=== PATIENT | female | born 1960 | race Caucasian/White ===

== ENCOUNTER 2018-10-18 19:28 | Emergency (ER) | payer OTHER ==
--- NOTE | 2018-10-18 19:46 | EDM.PDOC ---
ED HPI GENERAL MEDICAL PROBLEM - General Chief Complaint: Neuro Symptoms/Deficits Stated Complaint: POSS STROKE Time Seen by Provider: 10/18/18 19:29 - History of Present Illness INITIAL COMMENTS - FREE TEXT/NARRATIVE: 58-year-old female presents emergency room with right-sided weakness mild headache. Patient developed symptoms about a quarter after 7 this evening. He developed right-sided weakness pre-profound facial weakness. About the time she started to come to the hospital by private car somewhat also driving noticed that she was starting to improve. Time my initial exam she had some obvious right-sided weakness but this was getting better. Very subtle facial weakness was noted at that time. Patient had routine testing EKG CT labs done by the time she is back from CT she had minimal weakness on the right side still noticeable fairly mild. The patient doesn't have contraindications to thrombolytic therapy however she's getting better fairly rapidly. 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 Her bunk assembler is Dr. Greene at [facility] in [place]. Head Pain Score (Numeric/FACES): 5 - Related Data Allergies Allergy/AdvReac Type Severity Reaction Status Date / Time Sulfa (Sulfonamide Allergy Airway Verified 10/18/18 19:46 Antibiotics) Tightness Home Meds: Home Meds Aspirin [Ecotrin EC] 10/18/18 [History] Carvedilol 3.125 mg PO 10/18/18 [History] Enalapril [Vasotec] 10/18/18 [History] Loratadine [Claritin] 10/18/18 [History] Social & Family History - Tobacco Use Smoking Status *Q: Never Smoker - Caffeine Use Caffeine Use: Reports: None - Recreational Drug Use Recreational Drug Use: No ED ROS GENERAL - Review of Systems Review Of Systems: See Below Constitutional: Reports: No Symptoms HEENT: Reports: No Symptoms Respiratory: Reports: No Symptoms Cardiovascular: Reports: No Symptoms Endocrine: Reports: No Symptoms GI/Abdominal: Reports: No Symptoms : Reports: No Symptoms Musculoskeletal: Reports: No Symptoms Skin: Reports: No Symptoms Neurological: Reports: Headache, Trouble Speaking, Difficulty Walking, Other ( This is all improving) Psychiatric: Reports: No Symptoms Hematologic/Lymphatic: Reports: No Symptoms Immunologic: Reports: No Symptoms ED EXAM, NEURO - Physical Exam Exam: See Below Exam Limited By: No Limitations General Appearance: Alert, No Apparent Distress Eye Exam: Bilateral Eye: EOMI, Normal Inspection, PERRL Ears: Normal External Exam, Normal Canal, Hearing Grossly Normal, Normal TMs Nose: Normal Inspection, Normal Mucosa, No Blood Neck: Normal Inspection, Supple, Non-Tender, Full Range of Motion. No: Lymphadenopathy (L), Lymphadenopathy (R) Respiratory/Chest: No Respiratory Distress, Lungs Clear, Normal Breath Sounds Cardiovascular: Regular Rate, Rhythm, No Edema, No Murmur GI/Abdominal: Normal Bowel Sounds, Soft, Non-Tender Neurological: Alert, Normal Mood/Affect, Oriented x 3, Other (Initially she had the very noticeable right-sided muscle weakness in her arm and leg but at times she is back from CT this improved dramatically however not to baseline. What little facial weakness she was noted to have was mostly all gone by the time she returned from CT). No: No Motor/Sensory Deficits Back Exam: Normal Inspection. No: CVA Tenderness (L), CVA Tenderness (R) Extremities: Normal Inspection, No Pedal Edema Psychiatric: Normal Affect, Normal Mood Skin Exam: Warm, Dry, Intact EKG INTERPRETATION Rhythm: NSR P-Wave: Present QRS: LBBB ST-T: Other (Normal for left bundle branch block) QT: Normal Comparison: NA - No Prior EKG EKG Interpretation Comments: Abnormal Course - Vital Signs Last Recorded V/S: Last Vital Signs Temp 36.2 C 10/18/18 19:39 Pulse 63 10/18/18 19:39 Resp 18 10/18/18 19:39 BP 137/75 10/18/18 19:39 Pulse Ox 99 10/18/18 19:39 - Orders/Labs/Meds Orders: Active Orders 24 hr Category Date Time Status EKG Documentation Completion [RC] ASDIRECTED Care 10/18/18 19:46 Active Chest 1V Frontal [CR] Stat Exams 10/18/18 19:43 Taken Labs: Laboratory Tests 10/18/18 10/18/18 10/18/18 Range/Units 19:33 19:35 19:35 WBC 8.72 (3.98-10.04) K/mm3 RBC 5.37 H (3.98-5.22) M/mm3 Hgb 14.2 (11.2-15.7) gm/L Hct 42.2 (34.1-44.9) % MCV 78.6 L (79.4-94.8) fl MCH 26.4 (25.6-32.2) pg MCHC 33.6 (32.2-35.5) g/dl RDW Std Deviation 38.2 (36.4-46.3) fL Plt Count 267 (182-369) K/mm3 MPV 9.1 L (9.4-12.3) fl Neutrophils % (Manual) 50 (40-60) % Band Neutrophils % 0 (0-10) % Lymphocytes % (Manual) 42 H (20-40) % Atypical Lymphs % 0 % Monocytes % (Manual) 8 (2-10) % Eosinophils % (Manual) 0 L (0.7-5.8) % Basophils % (Manual) 0 L (0.1-1.2) Platelet Estimate Adequate RBC Morph Comment Normal PT 9.9 (9.7-12.0) SECONDS INR < 0.93 APTT 24 (22-31) SECONDS Sodium (136-145) mEq/L Potassium (3.5-5.1) mEq/L Chloride (98-107) mEq/L Carbon Dioxide (21-32) mEq/L Anion Gap (5-15) BUN (7-18) mg/dL Creatinine (0.55-1.02) mg/dL Est Cr Clr Drug Dosing mL/min Estimated GFR (MDRD) (>60) mL/min BUN/Creatinine Ratio (14-18) Glucose (74-106) mg/dL POC Glucose 103 (70-105) mg/dL Calcium (8.5-10.1) mg/dL Total Bilirubin (0.2-1.0) mg/dL AST (15-37) U/L ALT (14-59) U/L Alkaline Phosphatase (46-116) U/L Troponin I (0.00-0.056) ng/mL Total Protein (6.4-8.2) g/dl Albumin (3.4-5.0) g/dl Globulin gm/dL Albumin/Globulin Ratio (1-2) 10/18/18 Range/Units 19:35 WBC (3.98-10.04) K/mm3 RBC (3.98-5.22) M/mm3 Hgb (11.2-15.7) gm/L Hct (34.1-44.9) % MCV (79.4-94.8) fl MCH (25.6-32.2) pg MCHC (32.2-35.5) g/dl RDW Std Deviation (36.4-46.3) fL Plt Count (182-369) K/mm3 MPV (9.4-12.3) fl Neutrophils % (Manual) (40-60) % Band Neutrophils % (0-10) % Lymphocytes % (Manual) (20-40) % Atypical Lymphs % % Monocytes % (Manual) (2-10) % Eosinophils % (Manual) (0.7-5.8) % Basophils % (Manual) (0.1-1.2) Platelet Estimate RBC Morph Comment PT (9.7-12.0) SECONDS INR APTT (22-31) SECONDS Sodium 140 (136-145) mEq/L Potassium 3.9 (3.5-5.1) mEq/L Chloride 103 (98-107) mEq/L Carbon Dioxide 22 (21-32) mEq/L Anion Gap 18.9 H (5-15) BUN 17 (7-18) mg/dL Creatinine 0.9 (0.55-1.02) mg/dL Est Cr Clr Drug Dosing 66.26 mL/min Estimated GFR (MDRD) > 60 (>60) mL/min BUN/Creatinine Ratio 18.9 H (14-18) Glucose 115 H (74-106) mg/dL POC Glucose (70-105) mg/dL Calcium 10.0 (8.5-10.1) mg/dL Total Bilirubin 0.3 (0.2-1.0) mg/dL AST 19 (15-37) U/L ALT 22 (14-59) U/L Alkaline Phosphatase 110 (46-116) U/L Troponin I < 0.017 (0.00-0.056) ng/mL Total Protein 8.0 (6.4-8.2) g/dl Albumin 4.1 (3.4-5.0) g/dl Globulin 3.9 gm/dL Albumin/Globulin Ratio 1.1 (1-2) Meds: Medications Discontinued Medications Generic Name Dose Route Start Last Admin Trade Name Freq PRN Reason Stop Dose Admin Aspirin 325 mg 10/18/18 20:18 10/18/18 20:24 Ecotrin PO 10/18/18 20:19 325 mg ONETIME ONE Administration - Re-Assessments/Exams Free Text/Narrative Re-Assessment/Exam: 10/18/18 20:43 [facility] in [place] was contacted and they put me contact with dr. Hunter who agreed on holding off on thrombolytics and agreed on the transfer recommend the patient go through the emergency room first because we cannot do a CTA with perfusion studies. The case was reviewed with who told one call to send her to the emergency room. Departure - Departure Time of Disposition: 20:30 Disposition: DC/Tfer to [facility] Clinical Impression: CVA (cerebral vascular accident) - Discharge Information Forms: ED Department Discharge - My Orders Last 24 Hours: My Active Orders 10/18/18 19:43 Chest 1V Frontal [CR] Stat 10/18/18 19:46 EKG Documentation Completion [RC] ASDIRECTED - Assessment/Plan Last 24 Hours: My Active Orders 10/18/18 19:43 Chest 1V Frontal [CR] Stat 10/18/18 19:46 EKG Documentation Completion [RC] ASDIRECTED
--- NOTE | 2018-10-18 20:14 | CT ---
Head CT Technique: Multiple axial sections through the brain were obtained. Intravenous contrast was not utilized. Comparison: No previous intracranial imaging is available. Findings: Ventricles along with basal cisterns and sulci over the convexities are within normal limits for the patient's age. No abnormal parenchymal densities are seen. No evidence of intracranial hemorrhage. No midline shift or mass effect is seen. Bone window settings were reviewed which show no acute paranasal sinus finding within the visualized sinuses. Visualized mastoid sinuses are also clear. No acute calvarial abnormality is seen. Impression: 1. Nothing acute is appreciated on noncontrast head CT exam. Diagnostic code #1 Note: Please correlate if patient symptoms warrant further evaluation by MRI.
[2018-10-18] MEDS ORDERED: Aspirin 325 MG Tab.EC PO ONE (20:18)
--- NOTE | 2018-10-19 10:39 | CR ---
Chest: Portable view of the chest was obtained. Comparison: No prior chest x-ray. Heart size and mediastinum are within normal limits. Lungs are clear with no acute parenchymal change. Bony structures are unremarkable. Impression: 1. Nothing acute is seen on portable chest x-ray. Diagnostic code #1
== END 2018-10-18 22:15 ==
LOC: JD.ED 19:28
DX: I63.9 Cerebral infarction, unspecified (principal); Z88.2 Allergy status to sulfonamides; Z79.82 Long term (current) use of aspirin; Z79.899 Other long term (current) drug therapy
CPT/HCPCS: 36415; 70450; 71045; 80053; 82962; 84484; 85007; 85027; 85610; 85730; 93005; 99285; A9270

== ENCOUNTER 2021-08-04 13:41 | Emergency (ER) | payer BC, OTHER ==
[2021-08-04] MEDS ORDERED: Sodium Chloride 0.9% 10 ML Syringe FLUSH PRN (14:13)
[2021-08-04] MEDS ORDERED: Sodium Chloride 0.9% 1,000 ML IV STA (14:37)
[2021-08-04] MEDS ORDERED: Sodium Chloride 0.9% 500 ML IV STA (14:37)
[2021-08-04 15:31] LABS: ESTIMATED GFR 73 mL/min (>60)
[2021-08-04] MEDS ORDERED: Metoprolol Tartrate 25 MG Tab PO ONE (17:33)
== END 2021-08-04 17:46 | disposition home or self-care (01) ==
LOC: JD.ED 13:41
DX: I95.9 Hypotension, unspecified (principal); R53.83 Other fatigue; Z86.16 Personal history of COVID-19
CPT/HCPCS: 36415; 71046; 80053; 83880; 84439; 84443; 84484; 85025; 85379; 86140; 93005; 96360; 96361; 99285; J3490; J7030; 93010; 99284